=== PATIENT | male | born 1945 ===

== ENCOUNTER 2024-07-13 14:48 | Observation (INO) | payer MEDICARE, OTHER ==
[~2024-07-13] VITALS: Ht 177.8 cm; Wt 74.0 kg
[~2024-07-13 14:48] MED LIST: ASPI81CH PO; CELERY SEED PO; CLOMIPRAMINE HC50 M1 PO; CLON.5 PO; DOCU100 PO; FISH OIL 1,0001 EA10 PO; Ginseng100 MG; LACT PO; LEVOTHYROXINE75 MC9 PO; MAGNESIUM GLU27.5 M1 PO; MULVITA PO; RISP4 PO; SAW; TAMS.4ER PO; VITAMIN B2 PO; VITAMIN D31000 UNI1 PO; Vitamin B Comple1 EA PO; [UNRECOGNIZED DRUG - OTHER]; [UNRECOGNIZED DRUG - OTHER] PO
[2024-07-13 15:36] LABS: BASOPHILS ABSOLUTE AUTO 0.03 K/mm3 (0.00-0.23); BASOPHILS PERCENT AUTO 1 % (0-2); EOSINOPHILS ABSOLUTE AUTO 0.06 K/mm3 (0.00-0.68); EOSINOPHILS PERCENT AUTO 1 % (0-6); Hematocrit 39.1 % (37.0-53.0); Hemoglobin 13.9 g/dL (13.5-17.5); IMMATURE GRAN ABSOLUTE AUTO 0.03 K/mm3 (0.00-0.10); IMMATURE GRAN PERCENT AUTO 1 % (0-1); LYMPHOCYTES ABSOLUTE AUTO 0.86 K/mm3 (0.84-5.20); LYMPHOCYTES PERCENT AUTO 17 % (21-46); MONOCYTES ABSOLUTE AUTO 0.46 K/mm3 (0.16-1.47); MONOCYTES PERCENT AUTO 9 % (4-13); Mean Corpuscular HGB 31.5 pg (26.0-34.0); Mean Corpuscular HGB Conc 35.5 g/dL (31.5-36.5); Mean Corpuscular Volume 89 fL (80-100); NEUTROPHILS ABSOLUTE AUTO 3.53 K/mm3 (1.96-9.15); NEUTROPHILS PERCENT AUTO 71 % (41-73); Platelet Count 178 K/mm3 (150-400); RDW Coefficient Variation 12.8 % (11.7-14.2); RDW Standard Deviation 41.8 fL (35.1-46.3); Red Blood Cell Count 4.41 M/mm3 (4.30-5.90); White Blood Cell Count 4.97 K/mm3 (4.00-11.30)
[2024-07-13 16:34] LABS: Albumin, Blood 3.7 g/dL (3.4-5.0); Albumin/Globulin Ratio 1.1 (0.8-1.8); Bilirubin, Total 0.5 mg/dL (0.1-1.0); Bun/Creatinine Ratio 19.2 (12.0-20.0); Calcium, Blood 8.7 mg/dL (8.5-10.1); Creatinine, Blood 0.78 mg/dL (0.60-1.20); Globulin, Blood 3.5 g/dL (2.2-4.0); Potassium, Blood 4.1 mmol/L (3.5-5.5); Total Protein, Blood 7.2 g/dL (6.4-8.2)
[2024-07-13] MEDS ORDERED: NS 1,000 ML IV SCH ×2 (19:50→21:30)
[2024-07-13] MEDS ORDERED: Ondansetron HCl 2 MG / ML 2ML Vial IV PRN (21:05)
[2024-07-13] MEDS ORDERED: Enoxaparin 40 MG/0.4 ML SYR SC SCH (22:00)
[2024-07-13 22:20] VITALS: BP 135/69
[2024-07-14] VITALS (8 sets, daily range): BP systolic 124–150; BP diastolic 59–74
[2024-07-14] MEDS ORDERED: NS 1,000 ML IV ONE (00:55)
[2024-07-14] MEDS ORDERED: CLON.5 PO (02:50)
[2024-07-14 03:43] LABS: Source, Urine Clean Catch
[2024-07-14 03:45] LABS: Bilirubin, Urine Neg (Neg); Blood, Urine Neg (Neg); Glucose Qualitative, Urine Neg (Neg); Ketones, Urine Neg (Neg); Leukocyte Esterase, Urine Neg (Neg); Nitrite, Urine Neg (Neg); Protein, Urine Neg (Neg); Urobilinogen, Urine NORM (Normal)
[2024-07-14 03:52] LABS: Appearance, Urine Clear (Clear); Color, Urine Yellow (P-Yellow)
[2024-07-14] MEDS ORDERED: LORazepam 1 MG Tab PO ONE (04:00)
[2024-07-14] MEDS ORDERED: Levothyroxine Sodium 0.075 MG Tab PO SCH (06:00)
[2024-07-14 07:06] LABS: BASOPHILS ABSOLUTE AUTO 0.05 K/mm3 (0.00-0.23); BASOPHILS PERCENT AUTO 1 % (0-2); EOSINOPHILS ABSOLUTE AUTO 0.12 K/mm3 (0.00-0.68); EOSINOPHILS PERCENT AUTO 2 % (0-6); Hemoglobin 13.2 g/dL (13.5-17.5); IMMATURE GRAN ABSOLUTE AUTO 0.01 K/mm3 (0.00-0.10); IMMATURE GRAN PERCENT AUTO 0 % (0-1); LYMPHOCYTES ABSOLUTE AUTO 1.43 K/mm3 (0.84-5.20); LYMPHOCYTES PERCENT AUTO 21 % (21-46); MONOCYTES ABSOLUTE AUTO 0.69 K/mm3 (0.16-1.47); MONOCYTES PERCENT AUTO 10 % (4-13); Mean Corpuscular HGB 31.5 pg (26.0-34.0); Mean Corpuscular HGB Conc 34.7 g/dL (31.5-36.5); Mean Corpuscular Volume 91 fL (80-100); Mean Platelet Volume 10.6 fL (9.1-12.4); NEUTROPHILS ABSOLUTE AUTO 4.41 K/mm3 (1.96-9.15); NEUTROPHILS PERCENT AUTO 66 % (41-73); Platelet Count 172 K/mm3 (150-400); RDW Coefficient Variation 12.9 % (11.7-14.2); RDW Standard Deviation 42.7 fL (35.1-46.3); Red Blood Cell Count 4.19 M/mm3 (4.30-5.90); White Blood Cell Count 6.71 K/mm3 (4.00-11.30)
--- NOTE | 2024-07-14 07:10 | NUR ---
NEW ADMIT/DRIVE IN WAITER/WAITRESS SUMMARY/HOSPITALIST CONTACT NEW ADMIT--PT ADMIT AFTER SNYCOPAL EVENT AT HOME. PT HAS LEFT OCCIPITAL LACERATION AND LOW SODIUM. PT IS A FULL CODE. PT ARRIVED TO ROOM AND ABLE TO TRANSFER FROM CHAIR TO BED WITH MIN ASSIST. PT IS ABLE TO ANSER ALL ORIENTATION QUESTIONS. PT IS TALKATIVE AND ANXIOUS; EXTREME VERBAL TANGENTS. DIFFICULTY ANSWERING QUESTIONS DIRECTLY. PT REQUIRING REDIRECTIONS TO REFOCUS CONVERSATION. PT PRESENTING WITH ANXIOUS THOUGHTS AND PARANOID THINKING. PT WAS ORIENTED TO ROOM AND CALL LIGHT. PT INSTRUCTED ON FALL RISK AND BED ALARM IN PLACE. PT HAD TWO BOTTLES OF HOME MEDS ON HIS PERSON. PT KEPT STATING THAT HE WOULD/COULD JUST TAKE THEM NOW HE WAS ANXIOUS HE MAY NOT GET. INSTRUCTED PT TO NOT TAKE MEDS. MEDS WERE PLACED IN LOCKED CLOSET IN PT ROOM. PT BECAME INCREASINGLY ANXIOUS AND CALLED RN TO ROOM MULTIPLE TIMES. PT SAID HE WAS AFAID HE WAS HAVING THOUGHTS OF HURTING HIMSELF OR OTHER "LIKE HE USED TO" PT ADMITS TO HAVING SIGNIFICANT PSYCH HX. A SECOND RN ASSISTED WITH NURSING MH EVAL AND CALLED HOSPITALIST. DR SIERRA ORDERED 1X DOSE OF ORAL ATIVAN. SOON AFTER, STRIPPING MACHINE OPERATOR WAS AT BEDSIDE WITH PT FOR A TIME. DETERMINED PT TO BE AT LOW RISK FOR SELF/OTHER HARM BUT PLAN TO DISCUSS WITH DR SIERRA AND ADVISE OF ANY CHANGES. PT WAS PLEASANT AND COOPERATIVE FOR REMAINING SHIFT. PT WAS WAKEFUL ALL NIGHT. PT DID NOT APPEAR TO HAVE BENEFIT FROM ORAL ATIVAN. PT SITTING AT BEDSIDE ANXIOUSLY FILLING WHITE PAD WITH WRITING/NOTES. PT EXPRESSED FEAR OF FORGETTING WHAT HE WAS THINKING ABOUT. RN CONTINUED WITH REGULAR INTERVAL ROUNDING TO ASSESS NEEDS. CALL LIGHT ACCESSIBLE.
[2024-07-14 08:00] LABS: Free Thyroxine 1.25 ng/dL (0.70-1.60); Thyroid Stimulating Hormone 3.25 uIU/mL (0.360-4.800)
[2024-07-14 08:01] LABS: Albumin, Blood 3.5 g/dL (3.4-5.0); Bilirubin, Total 0.5 mg/dL (0.1-1.0); Calcium, Blood 8.9 mg/dL (8.5-10.1); Creatinine, Blood 0.78 mg/dL (0.60-1.20); Globulin, Blood 3.6 g/dL (2.2-4.0); Potassium, Blood 4.3 mmol/L (3.5-5.5); Total Protein, Blood 7.1 g/dL (6.4-8.2)
[2024-07-14] MEDS ORDERED: Docusate Sodium 100 MG Cap PO SCH (09:00)
[2024-07-14] MEDS ORDERED: Lactobacil 2-S.Thermo-Bifido 1 1 Cap PO SCH (09:00)
[2024-07-14] MEDS ORDERED: RisperiDONE 1 MG Tab PO SCH (09:00)
[2024-07-14] MEDS ORDERED: ClonazePAM 0.5 MG Tab PO SCH ×2 (09:00→22:00)
[2024-07-14] MEDS ORDERED: Aspirin 81 MG Chew PO SCH (09:00)
[2024-07-14] MEDS ORDERED: Cosyntropin 0.25 MG / ML 1ML Vial IV ONE (12:55)
--- NOTE | 2024-07-14 14:28 | NUR ---
ASSUMED CARE VERY COOPERATIVE ANXIOUS PT WITH A HISTORY OF PSYCH, UP IN BED CALL LIGHT AT BEDSIDE AND IS ABLE TO MAKE NEEDS KNOWN. PT HAS CONCERNS WITH HIS ISSUES OF PASSING OUT AND IS HOPING WE WILL FIGURE ISSUE OUT. NO C/O PAIN HAS NO DISTRESS. 1330 [facility] LAB WORK DONE
[2024-07-15] VITALS (8 sets, daily range): BP systolic 110–134; BP diastolic 51–65
--- NOTE | 2024-07-15 04:31 | NUR ---
SHIFT SUMMARY PT ALERT ORIENTED ABLE TO VERBALIZE NEEDS. HE REMAINS VERY ANXIOUS AT TIMES.HE REQUESTED A ATIVAN LAST NIGHT. CALLED MD AND SHE ORDERED TO INCREASE THE KLONOPIN TO BID INSTEAD. KLONOPIN WAS GIVEN AND HE RESTED WELL. VSS ON RA SATTING AT 99%. NO C/O PAIN THIS SHIFT. NO SYNCOPE EPISODES SEEN. 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 REMAINS WITH [place] TO BACK OF HEAD WHERE LACERATION HAPPENED. NO REDNESS OR DRAINAGE SEEN. HE AMBULATES IN ROOM AD AGUILAR. RESTING IN BED AT THIS TIME WITH CALL LIGHT IN REACH
--- NOTE | 2024-07-15 05:54 | NUR ---
[employer] POLICY SPECIALIST CALLED TO INFORM ME THAT PT IS HAVING SOME ST CHANGES WITH ST DEPRESSIONS AND ELEVATIONS IN 2 LEADS. NO SYMPTOMS AT THIS TIME. PT RESTING IN BED. NO C/O CHEST PAIN OR PRESSURE. CALLED DR. SIERRA AND INFORMED HIM WITH NO NEW ORDERS
--- NOTE | 2024-07-15 14:34 | NUR ---
ASSUMED CARE OF PT A/O X 4 VERY PLEASENT AND LESS ANXIOUS THEN DAY BEFORE. PT MORE RELAXED AND STAING HE FEELS MUCH BETTER. DR RUANO IN TO SEE PT TODAY, ORDERS TO AMBULATE, PT WAS UP IN [place] DID VERY WELL NO DIZZINESS NO COMPLAINTS. 1200 TELE CALLED WITH SOME CHANGES IN OFFICE AUTOMATION CLERK, AFTER REPOSITIONING LEADS, SPEECH WRITER ASKED FOR ECG. RESULTS WERE COPIED AND SENT TO MONITOR AND DR RUANO WAS NOTIFIED, PT HAS NOT FLANAGAN ANY C/O PAIN NO CHEST PAIN NO DISTRESS.
--- NOTE | 2024-07-15 18:11 | NUR ---
NO CHANGE IN PT CONDITION. PT HAS BEEN AMB IN WITHOUT INCIDENT. NO CHEST PAIN NO DISTRESS.
[2024-07-15] MEDS ORDERED: NS 1,000 ML IR NR (20:00)
[2024-07-15] MEDS ORDERED: Atropine Sulfate 0.1 MG/ML 10ML SYR IV PRN (20:30)
[2024-07-15 20:54] LABS: Magnesium, Blood 1.8 mg/dL (1.6-2.4)
[2024-07-15] MEDS ORDERED: RisperiDONE 0.25 MG Tab PO SCH (21:00)
[2024-07-15 21:01] LABS: Albumin, Blood 3.4 g/dL (3.4-5.0); Bilirubin, Total 0.4 mg/dL (0.1-1.0); Bun/Creatinine Ratio 18.1 (12.0-20.0); Calcium, Blood 8.7 mg/dL (8.5-10.1); Creatinine, Blood 1.16 mg/dL (0.60-1.20); Globulin, Blood 3.3 g/dL (2.2-4.0); Potassium, Blood 4.4 mmol/L (3.5-5.5); Total Protein, Blood 6.7 g/dL (6.4-8.2)
[2024-07-16 00:07] VITALS: BP 100/44
[2024-07-16 04:09] VITALS: BP 118/46
[2024-07-16 05:00] VITALS: BP 110/61
--- NOTE | 2024-07-16 06:38 | NUR ---
PT TRANSFERRED TO PCU FROM MEDICAL S/P RAPID RESPONSE D/T BRADYCARDIA AND HEART BLOCK. 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 PT VITAL SIGNS OTHERWISE REMAINED WNL. PT CONTINUES TO TOLERATE IV FLUIDS AND HAS URINATED X3 IN TOILET, UNMEASURED. PT IS ABLE TO USE CALL LIGHT AND MAKE NEEDS KNOWN. PT IS AOX4, ON ROOM AIR. ZOLL/PADS AND ATROPINE AT BEDSIDE. PT HAS BEEN ON CONTINUES CARDIAC MONITORING SINCE ARRIVAL TO THE FLOOR BY HOSPITAL BED.
[2024-07-16 07:50] VITALS: BP 131/53
[2024-07-16] MEDS ORDERED: ClomiPRAMINE HCl 25 MG Cap PO SCH (08:00)
--- NOTE | 2024-07-16 08:55 | NUR ---
0850- MD RUANO GAVE VERBAL TO INCREASE RESPERIDONE TO 1MG. SAID TO GIVE KLONOPIN AND ANAFRANIL THIS MORNING.
--- NOTE | 2024-07-16 08:57 | NUR ---
0845- MD CHAVEZ GAVE VERBAL TO PLACE IR CONSULT.
[2024-07-16] MEDS ORDERED: Docusate Sodium 250 MG Cap PO SCH (09:00)
[2024-07-16] MEDS ORDERED: RisperiDONE 0.25 MG Tab PO SCH (09:00)
[2024-07-16 11:45] VITALS: BP 118/36
[2024-07-16 13:57] VITALS: BP 118/36
--- NOTE | 2024-07-16 14:27 | NUR ---
1420- THIS RN GAVE REPORT TO DARNELL POLLARD. ALL QUESTIONS AMSWERED.
--- NOTE | 2024-07-16 14:58 | NUR ---
6855- REPORT GIVEN TO FLIGHT NURSES. ALL QUESTIONS ANSWERED. PT LEFT WITH ALL BELONGINGS INCLUDING WALLET AND KEYS.
[2024-07-16] MEDS ORDERED: RisperiDONE 1 MG Tab PO SCH (21:00)
== END 2024-07-16 14:45 | disposition short-term general hospital (02) ==
LOC: ER 14:48 → MEDS 14:49 → EDBD 14:49 → ER 14:49 → MEDS 14:49 → ER 21:33 → MEDS 21:33 → PCU 07-14 20:01 → MEDS 07-14 20:01 → PCU 07-14 20:01 → ER 07-14 20:01 → MEDS 07-14 20:01 → PCU 07-15 20:01 → MEDS 07-15 20:01 → PCU 07-15 20:01
PROVIDERS: Emergency Medicine; ADMIT Internal Medicine
DX: I44.1 Atrioventricular block, second degree (principal); E87.1 Hypo-osmolality and hyponatremia; F20.9 Schizophrenia, unspecified; E03.9 Hypothyroidism, unspecified; Z79.82 Long term (current) use of aspirin
CPT/HCPCS: 12001; 36415; 70450; 71046; 80053; 80400; 81003; 82533; 83735; 84439; 84443; 84484; 85025; 93005; 93010; 93306; 96372; 96374; 99285-25; A9270; G0378; J0834; J1650; J7030